=== PATIENT | female | born 1995 | race Caucasian/White ===

== ENCOUNTER 2021-07-11 20:15 | Day surgery (SDC) | payer OTHER ==
[2021-07-11 20:37] VITALS: BMI 30.8
[2021-07-11] MEDS ORDERED: hydrALAZINE 20 MG/ML VIAL SLOW IVP PRN (21:18)
[2021-07-11] MEDS ORDERED: Ondansetron PF 4 MG/2 ML Vial IVP PRN (21:19)
[2021-07-11] MEDS ORDERED: Ondansetron PF 4 MG/2 ML Vial ONE (21:29)
[2021-07-11 21:42] LABS: #Monocytes 0.5 10x3/uL (0.0-1.1); #Neutrophils 7.8 10x3/uL (1.5-8.4); %Basophils 0.3 % (0.0-2.0); %Eosinophils 0.4 % (0.0-6.0); %Lymphocytes 11.5 % (18.0-47.0); %Monocytes 4.8 % (0.0-10.0); %Neutrophils 82.5 % (40.0-75.0); Hemoglobin 11.2 g/dL (12.0-15.5); Mean Corpuscular HGB CONC 34.3 g/dL (32.0-36.0); Mean Corpuscular Hemoglobin 32.8 pg (27.0-33.0); Mean Corpuscular Volume 95.9 fl (81.6-98.3); Mean Platelet Volume 9.8 fl (7.4-10.4); Platelet Count 308 10x3/uL (150-450); RBC Distribution Width 13.2 % (11.5-14.5); Red Blood Cell (RBC) Count 3.41 10x6/uL (3.90-5.03); White Blood Cell (WBC) Count 9.5 10x3/uL (3.5-10.5)
[2021-07-11 21:46] LABS: ALT (SGPT) 10 U/L (8-55); AST (SGOT) 11 U/L (5-34); Albumin 3.2 g/dL (3.5-5.0); Alkaline Phosphatase 63 U/L (40-110); Anion Gap 13 mmol/L (10-20); BUN (Urea Nitrogen) 6 mg/dL (7.0-18.7); Bilirubin, Total 1.2 mg/dL (0.2-1.2); Calc. Creatinine Clearance 180 mL/min (70-130); Calcium 8.5 mg/dL (7.8-10.44); Carbon Dioxide 20 mmol/L (22-29); Chloride 104 mmol/L (98-107); Globulin 3.1 g/dL (2.4-3.5); Glucose 99 mg/dL (70-105); Protein, Total 6.3 g/dL (6.0-8.3); Sodium 134 mmol/L (136-145)
[2021-07-11] MEDS ORDERED: Lactated Ringer's 1,000 ML IV SCH ×3 (22:00→22:15)
[2021-07-11] MEDS ORDERED: Ondansetron PF 4 MG/2 ML Vial IVP SCH (22:00)
[2021-07-11 22:04] LABS: Potassium 2.9 mmol/L (3.5-5.1)
[2021-07-11] MEDS ORDERED: Potassium Chloride 20 MEQ TAB PO SCH (22:15)
[2021-07-11 22:21] LABS: Magnesium 1.6 mg/dL (1.6-2.6)
[2021-07-11] MEDS ORDERED: Magnesium 2 GM/50 ML 2 GM in Premix Bag 1 BAG IVPB SCH (22:30)
== END 2021-07-12 00:40 | disposition home or self-care (01) ==
LOC: CSHLD/OP 20:15
PROVIDERS: ATTEND Obstetrics & Gynecology
DX: O99.613 Diseases of the digestive system complicating pregnancy, third trimester (principal); K52.9 Noninfective gastroenteritis and colitis, unspecified; O99.283 Endocrine, nutritional and metabolic diseases complicating pregnancy, third trimester; E86.0 Dehydration; E87.6 Hypokalemia; O99.891 Other specified diseases and conditions complicating pregnancy; R00.0 Tachycardia, unspecified; O36.8330 Maternal care for abnormalities of the fetal heart rate or rhythm, third trimester, not applicable or unspecified; O36.8130 Decreased fetal movements, third trimester, not applicable or unspecified; Z3A.29 29 weeks gestation of pregnancy
CPT/HCPCS: 36415; 80053; 83735; 85025; 93005; 93010; 96361; 96365; 96366; 96375; 99283; J2405; J3475

== ENCOUNTER 2021-09-10 13:56 | Outpatient (CLI) | payer OTHER ==
[2021-09-10 19:32] LABS: Hemoglobin 12.7 g/dL (12.0-15.5); Mean Corpuscular HGB CONC 32.6 g/dL (32.0-36.0); Mean Corpuscular Hemoglobin 32.2 pg (27.0-33.0); Mean Corpuscular Volume 98.7 fl (81.6-98.3); Mean Platelet Volume 10.7 fl (7.4-10.4); Platelet Count 303 10x3/uL (150-450); RBC Distribution Width 15.1 % (11.5-14.5); Red Blood Cell (RBC) Count 3.95 10x6/uL (3.90-5.03); White Blood Cell (WBC) Count 8.4 10x3/uL (3.5-10.5)
[2021-09-10 20:03] LABS: HIV (1/2) Antibody/Antigen Non-Reactive (NonReactive); HIV 1/2 INDEX 0.06 S/CO (<1.00)
[2021-09-10 20:04] LABS: Syphilis Antibody Nonreactive (Nonreactive); Syphilis Antibody Index 0.03 S/CO (<1.00 Non-Reactive)
[2021-09-11 14:21] LABS: HBSAB Concentration Less than 8.00 mIU/mL; Hep B Surf AB Non-Reactive (NonReactive)
[2021-09-11 17:56] LABS: SARS-CoV-2 PCR by NAA Not Detected (NotDetected)
== END 2021-09-10 13:57 | disposition home or self-care (01) ==
LOC: CSHLAB 13:56
PROVIDERS: ATTEND Obstetrics & Gynecology
DX: Z01.812 Encounter for preprocedural laboratory examination (principal); Z20.822 Contact with and (suspected) exposure to COVID-19
CPT/HCPCS: 85027; 86706; 86780; 86900; 86901; 87389; U0003; U0005

== ENCOUNTER 2021-09-14 05:27 | Inpatient (IN) | payer OTHER ==
[~2021-09-14 05:27] MED LIST: Bicitra 30 ML UDCUP PO PRN; Famotidine/PF 20 mg/2ml Vial SLOW IVP PRN; Ondansetron PF 4 MG/2 ML Vial IVP PRN; Promethazine HCl 25 MG/ML VIAL IM PRN; hydrALAZINE 20 MG/ML VIAL SLOW IVP PRN
[2021-09-14] MEDS ORDERED: Lactated Ringer's 1,000 ML IV SCH (05:30)
[2021-09-14] MEDS ORDERED: ceFAZolin 2 GM/Dextrose 50 ML 2 GM in Premix Bag 1 BAG IVPB SCH (05:30)
[2021-09-14 05:35] VITALS: BMI 31.3
[2021-09-14 06:42] LABS: Mean Corpuscular HGB CONC 34.3 g/dL (32.0-36.0); Mean Corpuscular Hemoglobin 32.3 pg (27.0-33.0); Mean Corpuscular Volume 94.1 fl (81.6-98.3); Mean Platelet Volume 10.3 fl (7.4-10.4); Platelet Count 252 10x3/uL (150-450); RBC Distribution Width 14.6 % (11.5-14.5); Red Blood Cell (RBC) Count 3.72 10x6/uL (3.90-5.03); White Blood Cell (WBC) Count 7.6 10x3/uL (3.5-10.5)
[2021-09-14] MEDS ORDERED: Ondansetron PF 4 MG/2 ML Vial ONE (06:44)
[2021-09-14] MEDS ORDERED: Oxytocin 10 UNITS/ML VIAL ONE ×2 (06:44→08:21)
[2021-09-14] MEDS ORDERED: Phenylephrine 10 MG/ML VIAL ONE (06:44)
[2021-09-14] MEDS ORDERED: Ketorolac Tromethamine 30 MG/ML VIAL ONE (06:45)
[2021-09-14] MEDS ORDERED: Morphine PF 10 MG/10 ML VIAL ONE (07:10)
[2021-09-14] MEDS ORDERED: Phenylephrine 40 MG/NS 250 ML 0 ML ONE (07:10)
[2021-09-14 07:42] LABS: Hep B Surf Ag Non-Reactive S/CO (NonReactive)
[2021-09-14 07:45] LABS: HBSAg Index 0.21 S/CO (0-0.99)
[2021-09-14] MEDS ORDERED: Meperidine HCl/PF 25 MG/ML VIAL SLOW IVP PRN (08:14)
[2021-09-14] MEDS ORDERED: HYDROmorphone 2 MG/ML VIAL SLOW IVP PRN (08:14)
[2021-09-14] MEDS ORDERED: diphenhydrAMINE 50 MG/ML VIAL IVP PRN (08:14)
[2021-09-14] MEDS ORDERED: Ondansetron PF 4 MG/2 ML Vial IVP PRN ×2 (08:14→10:47)
[2021-09-14] MEDS ORDERED: Naloxone HCl 0.4 mg/ml Vial IVP PRN ×2 (08:14)
[2021-09-14] MEDS ORDERED: Fentanyl 100 MCG/2 ML VIAL SLOW IVP PRN (08:14)
[2021-09-14] MEDS ORDERED: Naloxone HCl 0.4 mg/ml Vial IV PRN (08:14)
[2021-09-14] MEDS ORDERED: Promethazine HCl 25 MG/ML VIAL IM PRN (08:14)
[2021-09-14] MEDS ORDERED: Promethazine HCl 25 MG SUPP PR PRN (08:14)
[2021-09-14] MEDS ORDERED: Hydrocerin (Eucerin) Cream 120 gm Jar TOP PRN (08:14)
[2021-09-14] MEDS ORDERED: Ondansetron HCl/PF 4 MG/2 ML Vial IVP PRN (08:14)
[2021-09-14] MEDS ORDERED: Communication Order-Pharmacy FS SCH (08:15)
[2021-09-14] MEDS ORDERED: Ketorolac Tromethamine 30 MG/ML VIAL IVP SCH (08:15)
[2021-09-14] MEDS ORDERED: Phytonadione Neonatal 1 MG/0.5 ML AMP ONE (08:21)
[2021-09-14] MEDS ORDERED: Erythromycin Base 0.5% Oint 1 GM TUBE ONE (08:21)
[2021-09-14] MEDS ORDERED: Simethicone Chewable 80 MG TAB PO PRN (10:47)
[2021-09-14] MEDS ORDERED: Lanolin Ointment 7 GM TUBE TOP PRN (10:47)
[2021-09-14] MEDS ORDERED: hydrALAZINE 20 MG/ML VIAL SLOW IVP PRN (10:47)
[2021-09-14] MEDS ORDERED: Boostrix 0.5 ML (Tdap) VIAL IM ONE (10:47)
[2021-09-14] MEDS: Ketorolac Tromethamine 30 MG/ML VIAL IVP PRN ×2 (11:40→18:29)
[2021-09-14] MEDS ORDERED: HYDROcodone/Acetaminophen 5/325 mg Tablet PO PRN (20:15)
[2021-09-14] MEDS: Docusate 100 MG CAP PO SCH (22:28)
[2021-09-14] MEDS: Ferrous Sulfate 325 MG TAB PO SCH (22:28)
[2021-09-15 06:41] LABS: Hemoglobin 10.4 g/dL (12.0-15.5); Mean Corpuscular HGB CONC 32.9 g/dL (32.0-36.0); Mean Corpuscular Hemoglobin 32.5 pg (27.0-33.0); Mean Corpuscular Volume 98.8 fl (81.6-98.3); Mean Platelet Volume 10.7 fl (7.4-10.4); Platelet Count 239 10x3/uL (150-450); RBC Distribution Width 14.6 % (11.5-14.5); White Blood Cell (WBC) Count 13.3 10x3/uL (3.5-10.5)
[2021-09-15] MEDS: Prenatal Vitamin 1 TAB PO SCH (09:36)
[2021-09-15] MEDS: Docusate 100 MG CAP PO SCH ×2 (09:36→21:33)
[2021-09-15] MEDS: Ferrous Sulfate 325 MG TAB PO SCH ×2 (09:37→21:33)
[2021-09-15] MEDS: Ibuprofen 800 MG TAB PO SCH ×2 (11:28→21:33)
[2021-09-16] MEDS: Ibuprofen 800 MG TAB PO SCH (04:53)
[2021-09-16 08:04] VITALS: BP 123/69; TEMP 97.4
[2021-09-16] MEDS: Docusate 100 MG CAP PO SCH (08:29)
[2021-09-16] MEDS: Ferrous Sulfate 325 MG TAB PO SCH (08:29)
[2021-09-16] MEDS: Prenatal Vitamin 1 TAB PO SCH (08:29)
[2021-09-19] MEDS ORDERED: Ibuprofen 800 MG TAB PO SCH (14:00)
== END 2021-09-16 12:20 | disposition home or self-care (01) | DRG 788 ==
LOC: CSHLD 05:27 → CSHPP 11:28
PROVIDERS: ADMIT Student in an Organized Health Care Education/Training Program; ATTEND Student in an Organized Health Care Education/Training Program
PROC: 10D00Z1 Extraction of Products of Conception, Low, Open Approach (ICD-10-PCS; principal; 2021-09-14)
PROC: 10907ZC Drainage of Amniotic Fluid, Therapeutic from Products of Conception, Via Natural or Artificial Opening (ICD-10-PCS; 2021-09-14)
DX: O34.211 Maternal care for low transverse scar from previous cesarean delivery (principal); O99.02 Anemia complicating childbirth; D64.9 Anemia, unspecified; Z3A.39 39 weeks gestation of pregnancy; Z37.0 Single live birth
CPT/HCPCS: 36415; 51702; 85027; 86850; 86900; 86901; 87340; J0690; J1200; J1885; J2274; J2370; J2405; J2590

== ENCOUNTER 2022-08-07 12:07 | Emergency (ER) | payer OTHER ==
[2022-08-07 20:41] LABS: #Eosinphils 0.1 10x3/uL (0.0-0.5); #Monocytes 0.4 10x3/uL (0.0-1.1); #Neutrophils 5.6 10x3/uL (1.5-8.4); %Basophils 0.5 % (0.0-2.0); %Eosinophils 0.6 % (0.0-6.0); %Lymphocytes 21.6 % (18.0-47.0); %Monocytes 4.8 % (0.0-10.0); %Neutrophils 72.4 % (40.0-75.0); Hemoglobin 14.5 g/dL (12.0-15.5); Mean Corpuscular HGB CONC 34.7 g/dL (32.0-36.0); Mean Corpuscular Hemoglobin 32.2 pg (27.0-33.0); Mean Corpuscular Volume 92.7 fl (81.6-98.3); Mean Platelet Volume 9.9 fl (7.4-10.4); Platelet Count 366 10x3/uL (150-450); RBC Distribution Width 12.4 % (11.5-14.5); Red Blood Cell (RBC) Count 4.51 10x6/uL (3.90-5.03); White Blood Cell (WBC) Count 7.7 10x3/uL (3.5-10.5)
== END 2022-08-07 14:45 | disposition home or self-care (01) ==
LOC: CSHERS 12:07
DX: O20.0 Threatened abortion (principal); Z3A.01 Less than 8 weeks gestation of pregnancy
CPT/HCPCS: 36415; 76856; 84702; 85025; 86900; 86901